=== PATIENT | female | born 1985 | race Caucasian/White ===

== ENCOUNTER 2017-01-06 05:16 | Emergency (ER) | payer SELFPAY ==
[~2017-01-06] VITALS: Ht 154.9 cm; Wt 77.0 kg
[2017-01-06] MEDS ORDERED: SODIUM CHLORIDE 0.9% 1,000 ML IV ONE (06:15)
[2017-01-06 06:41] LABS: BASOPHILS % 0.6 % (0.0-2.0); EOSINOPHILS % 8.1 % (0.0-5.0); HEMATOCRIT. 36.5 % (36.0-48.0); HEMOGLOBIN. 12.3 g/dL (12.0-16.0); LYMPHOCYTES % 20.9 % (20.0-50.0); MEAN CORPUSCULAR HEMOGLOBIN 29.1 pg (28.0-32.0); MEAN CORPUSCULAR VOLUME 86.5 fL (81.0-99.0); MEAN PLATELET VOLUME 7.4 fl (7.4-10.4); MONOCYTES % 8.1 % (2.0-8.0); NEUTROPHILS % 62.3 % (40.0-76.0); PLATELET 274 x1000/uL (130-400); RED BLOOD CELL COUNT 4.22 mill/uL (4.2-5.4)
[2017-01-06 06:56] LABS: PROTHROMBIN TIME 10.6 sec (9.4-11.6)
[2017-01-06 07:02] LABS: CARBON DIOXIDE 29 mEq/L (21-32); CHLORIDE 106 mEq/L (98-107)
[2017-01-06 07:03] LABS: TROPONIN I < 0.02 ng/mL (0.00-0.04)
[2017-01-06 07:08] LABS: CLARITY URINE CLOUDY (CLEAR); COLOR URINE DARK YELLOW (YELLOW); GLUCOSE URINE NEGATIVE (NEGATIVE); KETONES URINE NEGATIVE (NEGATIVE); LEUKOCYTE ESTERASE URINE 2+ (NEGATIVE); NITRITE URINE POSITIVE (NEGATIVE); OCCULT BLOOD URINE 1+ (NEGATIVE); PH URINE 5.5 (4.5-8.0); PROTEIN URINE 2+ (NEGATIVE); SPECIFIC GRAVITY URINE 1.034 (1.005-1.030); UROBILINOGEN URINE 0.2 E.U./dL (0.2-1.0)
[2017-01-06 07:38] LABS: *AMPHETAMINES SCREEN URINE PRESUMTIVE POSITIVE (NEGATIVE); *BARBITURATES SCREEN URINE NEGATIVE (NEGATIVE); *BENZODIAZEPINES SCREEN URINE NEGATIVE (NEGATIVE); *COCAINE SCREEN URINE NEGATIVE (NEGATIVE); CANNABINOID URINE SCREEN NEGATIVE (NEGATIVE); METHADONE URINE SCREEN NEGATIVE (NEGATIVE); OPIATES URINE SCREEN NEGATIVE (NEGATIVE); PHENCYCLIDINE URINE SCREEN NEGATIVE (NEGATIVE)
[2017-01-06] MEDS ORDERED: POTASSIUM CHLORIDE 20MEQ TABLET SR PO ONE (07:45)
[2017-01-06] MEDS ORDERED: IPRATROPIUM BROMIDE (0.02%) 0.5MG/2.5ML NEB HHN STA (08:19)
[2017-01-06] MEDS ORDERED: ALBUTEROL (0.083%) 2.5MG/3ML NEB HHN STA (08:19)
[2017-01-06] MEDS ORDERED: PREDNISONE 20MG TABLET PO STA (08:19)
[2017-01-06 08:55] VITALS: BP 113/59
== END 2017-01-06 09:35 | disposition home or self-care (01) ==
LOC: ER 05:16
DX: R07.89 Other chest pain (principal); N39.0 Urinary tract infection, site not specified; S80.212A Abrasion, left knee, initial encounter; F15.10 Other stimulant abuse, uncomplicated; I10 Essential (primary) hypertension; W01.0XXA Fall on same level from slipping, tripping and stumbling without subsequent striking against object, initial encounter; Y93.89 Activity, other specified; Y92.018 Other place in single-family (private) house as the place of occurrence of the external cause
CPT/HCPCS: 36415; 71010; 80053; 80305; 81001; 81025; 84484; 85025; 85610; 87086; 93005; 94640; 96360; 96361; 99285; J7512; J7611; J7030

== ENCOUNTER 2018-05-27 21:01 | Emergency (ER) | payer MEDICAID, OTHER ==
[~2018-05-27] VITALS: Ht 167.6 cm; Wt 94.0 kg
[2018-05-27 21:12] VITALS: BP 124/77
== END 2018-05-28 03:47 | disposition left against medical advice (07) ==
LOC: ER 21:01
DX: Z53.21 Procedure and treatment not carried out due to patient leaving prior to being seen by health care provider (principal); J45.909 Unspecified asthma, uncomplicated; I10 Essential (primary) hypertension; D64.9 Anemia, unspecified

== ENCOUNTER 2018-08-12 20:03 | Emergency (ER) | payer OTHER ==
[~2018-08-12] VITALS: Ht 154.9 cm; Wt 101.0 kg
[2018-08-12 22:43] LABS: BASOPHILS % 0.4 % (0.0-2.0); EOSINOPHILS % 5.9 % (0.0-5.0); HEMATOCRIT. 33.3 % (36.0-48.0); HEMOGLOBIN. 11.3 g/dL (12.0-16.0); MEAN CORPUSCULAR HEMOGLOBIN 27.9 pg (28.0-32.0); MEAN CORPUSCULAR VOLUME 82.5 fL (81.0-99.0); MEAN PLATELET VOLUME 7.6 fl (7.4-10.4); MONOCYTES % 7.6 % (2.0-8.0); NEUTROPHILS % 67.1 % (40.0-76.0); PLATELET 238 x1000/uL (130-400); RED BLOOD CELL COUNT 4.04 mill/uL (4.2-5.4); RED CELL DISTRIBUTION WIDTH 13.8 % (11.6-14.6)
[2018-08-12 22:46] LABS: CHLORIDE 108 mEq/L (98-107)
[2018-08-12 23:04] LABS: CLARITY URINE CLEAR (CLEAR); COLOR URINE YELLOW (YELLOW); KETONES URINE NEGATIVE (NEGATIVE); LEUKOCYTE ESTERASE URINE 1+ (NEGATIVE); NITRITE URINE NEGATIVE (NEGATIVE); OCCULT BLOOD URINE NEGATIVE (NEGATIVE); PH URINE 6.5 (4.5-8.0); PROTEIN URINE NEGATIVE (NEGATIVE); SPECIFIC GRAVITY URINE 1.007 (1.005-1.030); UROBILINOGEN URINE 0.2 E.U./dL (0.2-1.0)
[2018-08-12 23:11] LABS: B-HCG QUANTITATIVE 4809 mIU/mL (<3)
[2018-08-12 23:17] LABS: *AMPHETAMINES SCREEN URINE NEGATIVE (NEGATIVE); *BARBITURATES SCREEN URINE NEGATIVE (NEGATIVE); *BENZODIAZEPINES SCREEN URINE NEGATIVE (NEGATIVE); *COCAINE SCREEN URINE NEGATIVE (NEGATIVE); CANNABINOID URINE SCREEN NEGATIVE (NEGATIVE); METHADONE URINE SCREEN NEGATIVE (NEGATIVE); OPIATES URINE SCREEN NEGATIVE (NEGATIVE); PHENCYCLIDINE URINE SCREEN NEGATIVE (NEGATIVE)
[2018-08-13 00:09] VITALS: BP 116/66
== END 2018-08-13 00:17 | disposition home or self-care (01) ==
LOC: ER 20:03
DX: O99.712 Diseases of the skin and subcutaneous tissue complicating pregnancy, second trimester (principal); O16.2 Unspecified maternal hypertension, second trimester; Z3A.26 26 weeks gestation of pregnancy; R21 Rash and other nonspecific skin eruption
CPT/HCPCS: 36415; 76815; 80305; 84702; 99284

== ENCOUNTER 2018-09-24 08:34 | Observation (INO) | payer MEDICAID ==
[~2018-09-24] VITALS: Ht 160 cm; Wt 99.8 kg
[2018-09-24 11:22] LABS: CLARITY URINE CLEAR (CLEAR); COLOR URINE YELLOW (YELLOW); KETONES URINE NEGATIVE (NEGATIVE); LEUKOCYTE ESTERASE URINE TRACE (NEGATIVE); NITRITE URINE NEGATIVE (NEGATIVE); OCCULT BLOOD URINE NEGATIVE (NEGATIVE); PROTEIN URINE NEGATIVE (NEGATIVE); SPECIFIC GRAVITY URINE 1.009 (1.005-1.030); UROBILINOGEN URINE 0.2 E.U./dL (0.2-1.0)
[2018-09-24 11:49] LABS: *AMPHETAMINES SCREEN URINE NEGATIVE (NEGATIVE); *BARBITURATES SCREEN URINE NEGATIVE (NEGATIVE); *BENZODIAZEPINES SCREEN URINE NEGATIVE (NEGATIVE); *COCAINE SCREEN URINE NEGATIVE (NEGATIVE)
[2018-09-24 11:50] LABS: CANNABINOID URINE SCREEN NEGATIVE (NEGATIVE); METHADONE URINE SCREEN NEGATIVE (NEGATIVE); OPIATES URINE SCREEN NEGATIVE (NEGATIVE); PHENCYCLIDINE URINE SCREEN NEGATIVE (NEGATIVE)
[2018-09-24] MEDS ORDERED: PNV1TABL50 MT (12:17)
== END 2018-09-24 12:25 | disposition home or self-care (01) ==
LOC: MERGE 08:34 → EDBD 08:34 → 8 EST LDRP 08:34
PROVIDERS: ADMIT Obstetrics & Gynecology; ATTEND Obstetrics & Gynecology
DX: O62.9 Abnormality of forces of labor, unspecified (principal); Z3A.36 36 weeks gestation of pregnancy
CPT/HCPCS: 76700; 76805; 76818; 80305; 81003; 99281; G0378

== ENCOUNTER 2018-09-24 12:57 | Emergency (ER) | payer MEDICAID ==
[~2018-09-24] VITALS: Ht 154.9 cm; Wt 101.0 kg
[~2018-09-24 12:57] MED LIST: PNV1TABL50 MT
[2018-09-24 14:48] LABS: BASOPHILS % 0.3 % (0.0-2.0); EOSINOPHILS % 0.4 % (0.0-5.0); HEMATOCRIT. 31.3 % (36.0-48.0); HEMOGLOBIN. 10.4 g/dL (12.0-16.0); LYMPHOCYTES % 17.8 % (20.0-50.0); MEAN CORPUSCULAR HEMOGLOBIN 26.3 pg (28.0-32.0); MEAN CORPUSCULAR VOLUME 79.7 fL (81.0-99.0); MEAN PLATELET VOLUME 8.1 fl (7.4-10.4); NEUTROPHILS % 75.5 % (40.0-76.0); PLATELET 245 x1000/uL (130-400); RED BLOOD CELL COUNT 3.93 mill/uL (4.2-5.4); RED CELL DISTRIBUTION WIDTH 15.3 % (11.6-14.6)
[2018-09-24 14:51] LABS: CHLORIDE 109 mEq/L (98-107)
[2018-09-24 14:53] LABS: INR 0.9; PROTHROMBIN TIME 9.6 sec (9.6-11.0)
[2018-09-24 15:54] VITALS: BP 119/80
== END 2018-09-24 16:09 | disposition home or self-care (01) ==
LOC: MERGE 12:57 → ER 12:57
DX: M54.9 Dorsalgia, unspecified (principal); I10 Essential (primary) hypertension
CPT/HCPCS: 36415; 99283

== ENCOUNTER 2018-10-13 23:11 | Observation (INO) | payer MEDICAID, OTHER ==
[~2018-10-13] VITALS: Ht 157.5 cm; Wt 117.9 kg
[2018-10-14 02:10] LABS: CLARITY URINE CLOUDY (CLEAR); COLOR URINE YELLOW (YELLOW); KETONES URINE TRACE (NEGATIVE); LEUKOCYTE ESTERASE URINE TRACE (NEGATIVE); NITRITE URINE NEGATIVE (NEGATIVE); OCCULT BLOOD URINE NEGATIVE (NEGATIVE); PH URINE 5.5 (4.5-8.0); PROTEIN URINE 1+ (NEGATIVE); SPECIFIC GRAVITY URINE 1.032 (1.005-1.030)
[2018-10-14] MEDS ORDERED: CEFAZOLIN 2,000 MG in DEXT 5% WATER 100 ML IV NR (02:55)
[2018-10-14] MEDS ORDERED: DIPHENHYDRAMINE 25MG CAPSULE PO NR (03:00)
[2018-10-14] MEDS ORDERED: LACTATED RINGERS 1,000 ML IV SCH (03:00)
[2018-10-14] MEDS ORDERED: PREN1TAB78 MT (04:10)
[2018-10-14] MEDS ORDERED: FERR-71 MT (04:10)
[2018-10-14] MEDS ORDERED: CALC-38 MT (04:10)
== END 2018-10-14 04:45 | disposition home or self-care (01) ==
LOC: 8 EST LDRP 23:11
PROVIDERS: ADMIT Obstetrics & Gynecology; ATTEND Obstetrics & Gynecology
DX: O26.853 Spotting complicating pregnancy, third trimester (principal); Z3A.38 38 weeks gestation of pregnancy
CPT/HCPCS: 76815; 76818; 81003; 96365; 99281; G0378; J0690; J7060; Q0163; 96360

== ENCOUNTER 2018-10-25 22:00 | Observation (INO) | payer MEDICAID ==
[~2018-10-25] VITALS: Ht 157.5 cm; Wt 117.9 kg
[~2018-10-25 22:00] MED LIST changes: +CALC-38 MT; +FERR-71 MT; +PREN1TAB78 MT
[2018-10-25] MEDS ORDERED: prenatal vitamins (23:49)
== END 2018-10-26 00:10 | disposition home or self-care (01) ==
LOC: 8 EST LDRP 22:00
PROVIDERS: ADMIT Specialist; ATTEND Specialist
DX: O62.9 Abnormality of forces of labor, unspecified (principal); O48.0 Post-term pregnancy; Z3A.40 40 weeks gestation of pregnancy
CPT/HCPCS: 99281; G0378

== ENCOUNTER 2018-11-02 10:46 | Observation (INO) | payer MEDICAID ==
[~2018-11-02] VITALS: Ht 157.5 cm; Wt 117.9 kg
[~2018-11-02 10:46] MED LIST changes: -CALC-38 MT; -FERR-71 MT; -PNV1TABL50 MT; -PREN1TAB78 MT; +prenatal vitamins
== END 2018-11-02 15:00 | disposition home or self-care (01) ==
LOC: 8 EST LDRP 10:46
PROVIDERS: ADMIT Obstetrics & Gynecology; ATTEND Obstetrics & Gynecology
DX: O62.9 Abnormality of forces of labor, unspecified (principal); Z3A.38 38 weeks gestation of pregnancy
CPT/HCPCS: 76815; 76818; 99281; G0378

== ENCOUNTER 2018-11-07 15:51 | Observation (INO) | payer MEDICAID ==
[~2018-11-07] VITALS: Ht 157.5 cm; Wt 98.0 kg
== END 2018-11-07 17:20 | disposition home or self-care (01) ==
LOC: 8 EST LDRP 15:51
PROVIDERS: ADMIT Specialist; ATTEND Specialist
DX: O62.9 Abnormality of forces of labor, unspecified (principal); O99.89 Other specified diseases and conditions complicating pregnancy, childbirth and the puerperium; M54.9 Dorsalgia, unspecified; Z3A.38 38 weeks gestation of pregnancy
CPT/HCPCS: 99281; G0378

== ENCOUNTER 2019-04-16 17:36 | Emergency (ER) | payer MEDICAID ==
[~2019-04-16] VITALS: Ht 162.6 cm; Wt 65.0 kg
[2019-04-16 17:39] VITALS: BP 100/66
== END 2019-04-17 00:01 | disposition left against medical advice (07) ==
LOC: ER 17:36
DX: R10.9 Unspecified abdominal pain (principal); Z53.21 Procedure and treatment not carried out due to patient leaving prior to being seen by health care provider

== ENCOUNTER 2019-08-02 09:33 | Emergency (ER) | payer MEDICAID ==
[~2019-08-02] VITALS: Ht 160 cm; Wt 82.0 kg
[2019-08-02] MEDS ORDERED: SODIUM CHLORIDE 0.9% 1,000 ML IV ONE (09:48)
[2019-08-02] MEDS ORDERED: KETOROLAC 30MG/ML VIAL IV STA (09:48)
[2019-08-02] MEDS ORDERED: ONDANSETRON HCL 4MG/2ML INJ IV STA ×2 (09:48→11:50)
[2019-08-02 10:34] LABS: BASOPHILS % 0.5 % (0.0-2.0); EOSINOPHILS % 4.3 % (0.0-5.0); HEMATOCRIT. 39.4 % (36.0-48.0); HEMOGLOBIN. 13.1 g/dL (12.0-16.0); LYMPHOCYTES % 25.8 % (20.0-50.0); MEAN CORPUSCULAR HEMOGLOBIN 28.2 pg (28.0-32.0); MEAN CORPUSCULAR VOLUME 84.8 fL (81.0-99.0); MEAN PLATELET VOLUME 8.1 fl (7.4-10.4); MONOCYTES % 9.4 % (2.0-8.0); PLATELET 250 x1000/uL (130-400); RED BLOOD CELL COUNT 4.65 mill/uL (4.2-5.4); RED CELL DISTRIBUTION WIDTH 13.9 % (11.6-14.6)
[2019-08-02 10:42] LABS: PROTHROMBIN TIME 10.6 sec (9.6-11.0)
[2019-08-02 10:44] LABS: CHLORIDE 106 mEq/L (98-107)
[2019-08-02] MEDS ORDERED: LORAZEPAM 0.5MG TABLET PO ONE (10:45)
[2019-08-02 10:50] LABS: ETHANOL BLOOD < 10 mg/dL
[2019-08-02] MEDS ORDERED: MAGNESIUM/ALUMINUM HYDROXIDE/SIMETHICONE 30ML UDC PO STA (11:04)
[2019-08-02] MEDS ORDERED: DICYCLOMINE 10 MG/5 ML ORAL SYR PO STA (11:04)
[2019-08-02] MEDS ORDERED: VISCOUS LIDOCAINE 2% 15 ML UDC PO STA (11:04)
[2019-08-02] MEDS ORDERED: MORPHINE SULFATE 4 MG/ML CPJ (NOT FOR IM USE) IV STA (11:50)
[2019-08-02 11:53] LABS: *BARBITURATES SCREEN URINE NEGATIVE (NEGATIVE); *BENZODIAZEPINES SCREEN URINE NEGATIVE (NEGATIVE)
[2019-08-02 11:55] LABS: METHADONE URINE SCREEN NEGATIVE (NEGATIVE); PHENCYCLIDINE URINE SCREEN NEGATIVE (NEGATIVE)
[2019-08-02 11:57] LABS: CANNABINOID URINE SCREEN NEGATIVE (NEGATIVE)
[2019-08-02 12:05] VITALS: BP 133/80
[2019-08-02 12:05] LABS: *COCAINE SCREEN URINE NEGATIVE (NEGATIVE)
[2019-08-02 12:06] LABS: *AMPHETAMINES SCREEN URINE PRESUMTIVE POSITIVE (NEGATIVE); OPIATES URINE SCREEN PRESUMTIVE POSITIVE (NEGATIVE)
== END 2019-08-02 13:30 | disposition home or self-care (01) ==
LOC: ER 09:33
DX: K80.50 Calculus of bile duct without cholangitis or cholecystitis without obstruction (principal); I10 Essential (primary) hypertension; Z87.19 Personal history of other diseases of the digestive system
CPT/HCPCS: 36415; 76705; 80053; 80305; 80320; 81025; 83690; 85025; 85610; 96374; 96375; 99284; J1885; J2405; J7030; G0480

== ENCOUNTER 2019-09-01 22:30 | Emergency (ER) | payer MEDICAID ==
[~2019-09-01] VITALS: Ht 167.6 cm; Wt 66.0 kg
[2019-09-01] MEDS ORDERED: KETOROLAC 60MG/2ML VIAL IM ONE (23:45)
[2019-09-02 00:14] LABS: CLARITY URINE CLEAR (CLEAR); COLOR URINE YELLOW (YELLOW); KETONES URINE TRACE (NEGATIVE); LEUKOCYTE ESTERASE URINE 2+ (NEGATIVE); NITRITE URINE NEGATIVE (NEGATIVE); OCCULT BLOOD URINE NEGATIVE (NEGATIVE); PROTEIN URINE 1+ (NEGATIVE); SPECIFIC GRAVITY URINE 1.022 (1.005-1.030)
[2019-09-02 01:02] LABS: BASOPHILS % 0.2 % (0.0-2.0); EOSINOPHILS % 1.4 % (0.0-5.0); HEMATOCRIT. 37.7 % (36.0-48.0); HEMOGLOBIN. 12.6 g/dL (12.0-16.0); LYMPHOCYTES % 11.2 % (20.0-50.0); MEAN CORPUSCULAR HEMOGLOBIN 28.5 pg (28.0-32.0); MEAN PLATELET VOLUME 8.3 fl (7.4-10.4); MONOCYTES % 3.6 % (2.0-8.0); NEUTROPHILS % 83.6 % (40.0-76.0); PLATELET 246 x1000/uL (130-400); RED BLOOD CELL COUNT 4.44 mill/uL (4.2-5.4); RED CELL DISTRIBUTION WIDTH 13.6 % (11.6-14.6)
[2019-09-02] MEDS ORDERED: VISCOUS LIDOCAINE 2% 15 ML UDC MM SCH (01:04)
[2019-09-02 01:06] LABS: CHLORIDE 107 mEq/L (98-107)
[2019-09-02] MEDS ORDERED: MAGNESIUM/ALUMINUM HYDROXIDE/SIMETHICONE 30ML UDC PO SCH (01:15)
[2019-09-02] MEDS ORDERED: HYDROCODONE/ACETAMINOPHEN 5/325MG TABLET PO SCH (02:15)
[2019-09-02 02:31] VITALS: BP 132/88
== END 2019-09-02 02:47 | disposition home or self-care (01) ==
LOC: ER 22:30
DX: K80.80 Other cholelithiasis without obstruction (principal); R10.9 Unspecified abdominal pain; I10 Essential (primary) hypertension
CPT/HCPCS: 36415; 76705; 80053; 81003; 81025; 83690; 85025; 87086; 96372; 99284; J1885

== ENCOUNTER 2020-07-19 23:07 | Emergency (ER) | payer MEDICAID, OTHER ==
[~2020-07-19] VITALS: Ht 167.6 cm; Wt 93.0 kg
[2020-07-20 00:17] LABS: BASOPHILS % 0.4 % (0.0-2.0); EOSINOPHILS % 1.5 % (0.0-5.0); HEMATOCRIT. 33.9 % (36.0-48.0); HEMOGLOBIN. 11.5 g/dL (12.0-16.0); LYMPHOCYTES % 21.1 % (20.0-50.0); MEAN CORPUSCULAR VOLUME 85.7 fL (81.0-99.0); MEAN PLATELET VOLUME 7.4 fl (7.4-10.4); MONOCYTES % 7.3 % (2.0-8.0); NEUTROPHILS % 69.7 % (40.0-76.0); PLATELET 251 x1000/uL (130-400); RED BLOOD CELL COUNT 3.96 mill/uL (4.2-5.4); RED CELL DISTRIBUTION WIDTH 14.3 % (11.6-14.6)
[2020-07-20 00:23] LABS: CHLORIDE 108 mEq/L (98-107)
[2020-07-20] MEDS ORDERED: ACETAMINOPHEN 325MG TABLET PO ONE (01:00)
[2020-07-20 01:09] LABS: CLARITY URINE CLEAR (CLEAR); COLOR URINE YELLOW (YELLOW); KETONES URINE NEGATIVE (NEGATIVE); LEUKOCYTE ESTERASE URINE 2+ (NEGATIVE); NITRITE URINE NEGATIVE (NEGATIVE); OCCULT BLOOD URINE NEGATIVE (NEGATIVE); PH URINE 7.5 (4.5-8.0); PROTEIN URINE NEGATIVE (NEGATIVE); SPECIFIC GRAVITY URINE 1.016 (1.005-1.030); UROBILINOGEN URINE 0.2 E.U./dL (0.2-1.0)
[2020-07-20] MEDS ORDERED: AMOX-494 MT (01:30)
[2020-07-20] MEDS ORDERED: AMOXICILLIN 500 MG CAPSULE PO ONE (01:30)
[2020-07-20 01:50] VITALS: BP 110/60
== END 2020-07-20 02:46 | disposition home or self-care (01) ==
LOC: ER 23:07
DX: O26.891 Other specified pregnancy related conditions, first trimester (principal); O23.41 Unspecified infection of urinary tract in pregnancy, first trimester; Z3A.11 11 weeks gestation of pregnancy
CPT/HCPCS: 36415; 76801; 80053; 81003; 83880; 84484; 85025; 93005; 99284

== ENCOUNTER 2020-10-18 21:32 | Observation (INO) | payer OTHER ==
[~2020-10-18] VITALS: Ht 154.9 cm; Wt 95.3 kg
[~2020-10-18 21:32] MED LIST changes: +AMOX-494 MT; -prenatal vitamins
[2020-10-18] MEDS ORDERED: PREN1TAB78 PO (22:34)
[2020-10-18] MEDS ORDERED: FERR325T6 PO (22:34)
[2020-10-18 22:51] LABS: CLARITY URINE CLOUDY (CLEAR); COLOR URINE YELLOW (YELLOW); KETONES URINE TRACE (NEGATIVE); LEUKOCYTE ESTERASE URINE 2+ (NEGATIVE); NITRITE URINE NEGATIVE (NEGATIVE); OCCULT BLOOD URINE NEGATIVE (NEGATIVE); PROTEIN URINE TRACE (NEGATIVE); SPECIFIC GRAVITY URINE 1.026 (1.005-1.030)
== END 2020-10-18 23:55 | disposition home or self-care (01) ==
LOC: 8 EST LDRP 21:32
PROVIDERS: ADMIT Obstetrics & Gynecology; ATTEND Obstetrics & Gynecology
DX: O26.893 Other specified pregnancy related conditions, third trimester (principal); R10.2 Pelvic and perineal pain; O09.523 Supervision of elderly multigravida, third trimester; Z3A.37 37 weeks gestation of pregnancy
CPT/HCPCS: 59025; 81003; G0378; 99281

== ENCOUNTER 2020-11-21 11:49 | Observation (INO) | payer MEDICAID, OTHER ==
[~2020-11-21] VITALS: Ht 165.1 cm; Wt 99.0 kg
[~2020-11-21 11:49] MED LIST changes: -AMOX-494 MT; +FERR325T6 PO; +PREN1TAB78 PO
[2020-11-21 11:50] VITALS: BP 122/64
[2020-11-21] MEDS ORDERED: LIDOCAINE 5% PATCH TOP SCH (12:00)
[2020-11-21] MEDS ORDERED: ACETAMINOPHEN 325MG TABLET PO ONE (12:00)
[2020-11-21] MEDS ORDERED: ACET-2708 MT (16:04)
== END 2020-11-21 18:00 | disposition home or self-care (01) ==
LOC: ER 11:49 → 8 EST LDRP 16:50 → UNDODISOB 18:00
PROVIDERS: ADMIT Obstetrics & Gynecology; ATTEND Obstetrics & Gynecology
DX: O9A.213 Injury, poisoning and certain other consequences of external causes complicating pregnancy, third trimester (principal); S80.02XA Contusion of left knee, initial encounter; O16.3 Unspecified maternal hypertension, third trimester; O44.23 Partial placenta previa NOS or without hemorrhage, third trimester; Z3A.30 30 weeks gestation of pregnancy; W01.0XXA Fall on same level from slipping, tripping and stumbling without subsequent striking against object, initial encounter; Y92.89 Other specified places as the place of occurrence of the external cause; Y93.89 Activity, other specified; Y99.8 Other external cause status
CPT/HCPCS: 59025; 76805; G0378; 99281; 99284; G0379

== ENCOUNTER 2021-01-06 01:10 | Observation (INO) | payer OTHER ==
[~2021-01-06] VITALS: Ht 154.9 cm; Wt 127.0 kg
[~2021-01-06 01:10] MED LIST changes: +ACET-2708 MT
== END 2021-01-06 03:43 | disposition home or self-care (01) ==
LOC: 8 EST LDRP 01:10
PROVIDERS: ADMIT Obstetrics & Gynecology; ATTEND Obstetrics & Gynecology
DX: O26.893 Other specified pregnancy related conditions, third trimester (principal); R10.30 Lower abdominal pain, unspecified; Z3A.35 35 weeks gestation of pregnancy
CPT/HCPCS: 59025; G0378; 99281

== ENCOUNTER 2021-09-04 15:27 | Emergency (ER) | payer OTHER ==
[~2021-09-04] VITALS: Ht 167.6 cm; Wt 80.0 kg
[2021-09-04 16:05] VITALS: BP 125/88
[2021-09-04] MEDS ORDERED: IBUPROFEN 600MG TABLET PO ONE (22:15)
[2021-09-04] MEDS ORDERED: IBUPROFEN 600MG TABLET PO NR (23:30)
== END 2021-09-05 00:39 | disposition home or self-care (01) ==
LOC: ER 15:27
DX: N83.201 Unspecified ovarian cyst, right side (principal); Z30.431 Encounter for routine checking of intrauterine contraceptive device; Z87.19 Personal history of other diseases of the digestive system; I10 Essential (primary) hypertension; Z79.899 Other long term (current) drug therapy
CPT/HCPCS: 74018; 76856; 99284

== ENCOUNTER 2022-08-30 08:39 | Emergency (ER) | payer OTHER ==
[~2022-08-30] VITALS: Ht 154.9 cm; Wt 109.0 kg
[2022-08-30 08:48] VITALS: BP 11/81; PULSE 79; RESP 18; TEMP 99.6; O2SAT 99
[2022-08-30 09:09] LABS: BASOPHILS % 0.6 % (0.0-2.0); EOSINOPHILS % 3.2 % (0.0-5.0); HEMATOCRIT. 39.7 % (36.0-48.0); HEMOGLOBIN. 13.3 g/dL (12.0-16.0); LYMPHOCYTES % 21.7 % (20.0-50.0); MEAN CORPUSCULAR HEMOGLOBIN 28.4 pg (28.0-32.0); MEAN CORPUSCULAR VOLUME 84.6 fL (81.0-99.0); MEAN PLATELET VOLUME 7.3 fl (7.4-10.4); MONOCYTES % 7.7 % (2.0-8.0); NEUTROPHILS % 66.8 % (40.0-76.0); PLATELET 331 x1000/uL (130-400); RED BLOOD CELL COUNT 4.69 mill/uL (4.2-5.4); RED CELL DISTRIBUTION WIDTH 13.4 % (11.6-14.6)
[2022-08-30 09:17] LABS: CHLORIDE 106 mEq/L (98-107)
[2022-08-30 10:08] LABS: CLARITY URINE CLOUDY (CLEAR); COLOR URINE YELLOW (YELLOW); KETONES URINE NEGATIVE (NEGATIVE); LEUKOCYTE ESTERASE URINE NEGATIVE (NEGATIVE); NITRITE URINE NEGATIVE (NEGATIVE); OCCULT BLOOD URINE NEGATIVE (NEGATIVE); PROTEIN URINE NEGATIVE (NEGATIVE); SPECIFIC GRAVITY URINE 1.019 (1.005-1.030); UROBILINOGEN URINE 0.2 E.U./dL (0.2-1.0)
[2022-08-30] MEDS ORDERED: LEVO750T68 MT (15:36)
== END 2022-08-30 16:05 | disposition home or self-care (01) ==
LOC: ER 08:39
DX: A09 Infectious gastroenteritis and colitis, unspecified (principal)
CPT/HCPCS: 36415; 80053; 81003; 81025; 82270; 85025; 87015; 87045; 87427; 87449; 99283

== ENCOUNTER 2023-05-17 09:04 | Emergency (ER) | payer OTHER ==
[~2023-05-17] VITALS: Ht 157.5 cm; Wt 114.0 kg
[~2023-05-17 09:04] MED LIST changes: +LEVO750T68 MT
[2023-05-17 09:44] VITALS: O2SAT 99
[2023-05-17 10:16] LABS: CLARITY URINE TURBID (CLEAR); COLOR URINE RED (YELLOW); GLUCOSE URINE NEGATIVE (NEGATIVE); KETONES URINE NEGATIVE (NEGATIVE); LEUKOCYTE ESTERASE URINE 2+ (NEGATIVE); NITRITE URINE POSITIVE (NEGATIVE); OCCULT BLOOD URINE 3+ (NEGATIVE); PROTEIN URINE 2+ (NEGATIVE); SPECIFIC GRAVITY URINE 1.029 (1.005-1.030); UROBILINOGEN URINE 0.2 E.U./dL (0.2-1.0)
[2023-05-17 10:19] LABS: BASOPHILS % 0.5 % (0.0-2.0); EOSINOPHILS % 1.4 % (0.0-5.0); LYMPHOCYTES % 25.9 % (20.0-50.0); MEAN CORPUSCULAR HEMOGLOBIN 28.6 pg (28.0-32.0); MEAN CORPUSCULAR HGB CONC 33.3 g/dL (31.0-37.0); MEAN CORPUSCULAR VOLUME 85.9 fL (81.0-99.0); MEAN PLATELET VOLUME 7.7 fl (7.4-10.4); MONOCYTES % 6.5 % (2.0-8.0); NEUTROPHILS % 65.7 % (40.0-76.0); PLATELET 327 x1000/uL (130-400); RED BLOOD CELL COUNT 4.54 mill/uL (4.2-5.4); RED CELL DISTRIBUTION WIDTH 13.6 % (11.6-14.6); WHITE BLOOD COUNT 8.2 x1000/uL (4.5-11.0)
[2023-05-17 10:27] LABS: RBC URINE TNTC /hpf (0-2)
[2023-05-17 10:28] LABS: BACTERIA URINE FEW; SQUAMOUS EPITHELIAL CELL URINE FEW /lpf (RARE/1+); YEAST URINE NONE SEEN
[2023-05-17 11:15] LABS: ALANINE AMINOTRANSFERASE 22 IU/L (10-49); ALBUMIN 4.4 g/dL (3.2-4.8); ASPARTATE AMINOTRANSFERASE 22 IU/L (<34); B-HCG QUANTITATIVE 4107 mIU/mL (<3); BILIRUBIN TOTAL 0.7 mg/dL (0.1-1.0); CALCIUM 8.4 mg/dL (8.7-10.4); CARBON DIOXIDE 23 mEq/L (21-32); CHLORIDE 106 mEq/L (98-107); CREATININE 0.5 mg/dL (0.6-1.0); GLUCOSE 90 mg/dL (70-105); POTASSIUM 3.3 mEq/L (3.5-5.1); PROTEIN TOTAL 7.1 g/dL (6.0-8.3); SODIUM 137 mEq/L (136-145); UREA NITROGEN BLOOD 8 mg/dL (9-23)
[2023-05-17] MEDS ORDERED: ACETAMINOPHEN 650MG/20.3ML UDC PO ONE (12:45)
[2023-05-17] MEDS: ACETAMINOPHEN 325MG TABLET PO NR (13:00)
[2023-05-17] MEDS ORDERED: CEPH250C2 MT (13:49)
[2023-05-17 13:55] VITALS: BP 144/77; PULSE 88; RESP 16; TEMP 98
== END 2023-05-17 13:55 | disposition home or self-care (01) ==
LOC: ER 09:04
DX: O03.4 Incomplete spontaneous abortion without complication (principal); O26.891 Other specified pregnancy related conditions, first trimester; I10 Essential (primary) hypertension; Z90.49 Acquired absence of other specified parts of digestive tract; Z3A.01 Less than 8 weeks gestation of pregnancy
CPT/HCPCS: 36415; 76801; 80053; 81003; 81025; 84702; 85025; 86850; 86900; 99284

== ENCOUNTER 2023-06-26 06:53 | Emergency (ER) | payer OTHER ==
[~2023-06-26] VITALS: Ht 157.5 cm; Wt 118.0 kg
[~2023-06-26 06:53] MED LIST changes: +CEPH250C2 MT
[2023-06-26 06:59] VITALS: O2SAT 98
[2023-06-26] MEDS ORDERED: DIPH25CA83 PO (08:03)
[2023-06-26] MEDS ORDERED: P50 PO (08:03)
[2023-06-26] MEDS: PREDNISONE 20MG TABLET PO ONE (08:39)
[2023-06-26] MEDS: FAMOTIDINE 20MG TABLET PO ONE (08:39)
[2023-06-26] MEDS: DIPHENHYDRAMINE 25MG CAPSULE PO ONE (08:39)
[2023-06-26 08:57] VITALS: BP 121/80; PULSE 60; RESP 19; TEMP 98.2
== END 2023-06-26 08:58 | disposition home or self-care (01) ==
LOC: ER 06:53
DX: L50.9 Urticaria, unspecified (principal)
CPT/HCPCS: 99284; Q0163; J7512

== ENCOUNTER 2023-12-04 22:00 | Emergency (ER) | payer OTHER ==
[~2023-12-04] VITALS: Ht 162.6 cm; Wt 103.0 kg
[~2023-12-04 22:00] MED LIST changes: +DIPH25CA83 PO; +P50 PO
[2023-12-04 22:03] VITALS: TEMP 98; O2SAT 99
[2023-12-04] MEDS: SODIUM CHLORIDE 0.9% 1,000 ML IV ONE (22:15)
[2023-12-05 00:08] LABS: CLARITY URINE CLOUDY (CLEAR); COLOR URINE YELLOW (YELLOW); GLUCOSE URINE NEGATIVE (NEGATIVE); KETONES URINE TRACE (NEGATIVE); LEUKOCYTE ESTERASE URINE 1+ (NEGATIVE); NITRITE URINE NEGATIVE (NEGATIVE); OCCULT BLOOD URINE NEGATIVE (NEGATIVE); PH URINE 5.5 (4.5-8.0); PROTEIN URINE NEGATIVE (NEGATIVE); SPECIFIC GRAVITY URINE 1.026 (1.005-1.030); UROBILINOGEN URINE 0.2 E.U./dL (0.2-1.0)
[2023-12-05 00:17] LABS: BASOPHILS % 0.6 % (0.0-2.0); EOSINOPHILS % 3.9 % (0.0-5.0); HEMATOCRIT. 34.6 % (36.0-48.0); HEMOGLOBIN. 11.5 g/dL (12.0-16.0); LYMPHOCYTES % 31.7 % (20.0-50.0); MEAN CORPUSCULAR HEMOGLOBIN 28.5 pg (28.0-32.0); MEAN CORPUSCULAR HGB CONC 33.3 g/dL (31.0-37.0); MEAN CORPUSCULAR VOLUME 85.6 fL (81.0-99.0); MEAN PLATELET VOLUME 7.4 fl (7.4-10.4); MONOCYTES % 7.7 % (2.0-8.0); NEUTROPHILS % 56.1 % (40.0-76.0); PLATELET 265 x1000/uL (130-400); RED BLOOD CELL COUNT 4.04 mill/uL (4.2-5.4); RED CELL DISTRIBUTION WIDTH 14.1 % (11.6-14.6); WHITE BLOOD COUNT 9.4 x1000/uL (4.5-11.0)
[2023-12-05 00:26] LABS: CHLORIDE 108 mEq/L (98-107); POTASSIUM 4.1 mEq/L (3.5-5.1); SODIUM 139 mEq/L (136-145)
[2023-12-05 00:27] LABS: CALCIUM 8.6 mg/dL (8.7-10.4); CARBON DIOXIDE 26 mEq/L (21-32)
[2023-12-05 00:32] LABS: CREATININE 0.6 mg/dL (0.6-1.0); GLUCOSE 101 mg/dL (70-105); UREA NITROGEN BLOOD 8 mg/dL (9-23)
[2023-12-05 00:34] LABS: ALANINE AMINOTRANSFERASE 14 IU/L (10-49); ALBUMIN 3.5 g/dL (3.2-4.8); ASPARTATE AMINOTRANSFERASE 16 IU/L (<34); BILIRUBIN TOTAL 0.2 mg/dL (0.1-1.0); PROTEIN TOTAL 5.9 g/dL (6.0-8.3)
[2023-12-05 00:35] LABS: INR 0.9; PROTHROMBIN TIME 10.3 sec (9.6-11.0)
[2023-12-05 00:41] LABS: HCG SCREEN NEGATIVE
[2023-12-05 01:02] LABS: AMORPHOUS SEDIMENT URINE 1+ /lpf; BACTERIA URINE 1+; RBC URINE 0-2 /hpf (0-2); SQUAMOUS EPITHELIAL CELL URINE 1+ /lpf (RARE/1+)
[2023-12-05 01:08] LABS: BILIRUBIN DIRECT < 0.1 mg/dL (<=3.0)
[2023-12-05] MEDS: KETOROLAC 15MG/ML VIAL IV NR (01:34)
[2023-12-05] MEDS: CEFTRIAXONE 1GM/50ML 50 ML IV NR (01:34)
[2023-12-05] MEDS ORDERED: CEPH500C2 MT (05:06)
[2023-12-05 06:05] VITALS: BP 124/64; PULSE 60; RESP 21
[2023-12-05] MEDS ORDERED: IOHEXOL-300 100 ML BOTTLE ONE (06:40)
== END 2023-12-05 06:22 | disposition home or self-care (01) ==
LOC: ER 22:00
DX: N39.0 Urinary tract infection, site not specified (principal); N83.202 Unspecified ovarian cyst, left side; Z98.890 Other specified postprocedural states; Z79.899 Other long term (current) drug therapy
CPT/HCPCS: 99285; 96361; 81003; 36415; 74177; 96365; 96375; 80076; 80048; 84703; 83690; 85025; 85610; J7030; Q9967; J0696; J1885